=== PATIENT | female | born 2005 | race Caucasian/White ===

== ENCOUNTER 2023-07-02 00:48 | Emergency (ER) | payer BC ==
[2023-07-02] MEDS ORDERED: Ondansetron PF 4 MG/2 ML Vial ONE (01:09)
[2023-07-02 02:13] LABS: Bilirubin Neg (Negative); Blood, Urine Negative (Negative); Clarity Slightly Cloudy (Clear); Glucose, Urine (Dipstick) Normal (Negative); Ketone, Urine Negative (Negative); Leukocyte Negative (Negative); Nitrite Negative (Negative); Protein, Urine (Dipstick) Negative (Neg-Trace); Urobilinogen Normal mg/dL (Less than 2)
[2023-07-02 02:23] LABS: Pregnancy Test - Urine (BHCG) Negative (Negative); Pregu Control Background? CLEAR/WHITE (CLR/WHITE); Pregu Control Bar Appear? YES (CONTROL BAR)
[2023-07-02 02:34] LABS: Bacteria/HPF None Seen HPF (None Seen); CAUTI Indications for Culture Acute Hematuria; RBC/HPF None Seen HPF (0-3); WBC/HPF 0-3 HPF (0-3)
[2023-07-02 02:35] LABS: Urine Culture Reflex No No
== END 2023-07-02 02:32 | disposition home or self-care (01) ==
LOC: CSHERS 00:48
DX: F10.129 Alcohol abuse with intoxication, unspecified (principal); R11.2 Nausea with vomiting, unspecified
CPT/HCPCS: 81001; 81025; 96374; 96375; J2405